=== PATIENT | female | born 1980 | race Caucasian/White ===

== ENCOUNTER 2022-04-06 11:59 | Emergency (ER) | payer OTHER ==
[~2022-04-06] VITALS: Ht 165.1 cm; Wt 105.0 kg
[2022-04-06 14:53] VITALS: BP 135/78
[2022-04-06] MEDS ORDERED: KETOROLAC TROMETH 60MG/2ML VIAL IM ONE (15:00)
[2022-04-06] MEDS ORDERED: HYDROcodone-ACET 10/325MG TAB PO ONE (15:00)
[2022-04-06 17:26] LABS: Urine Bacteria FEW /hpf (None Seen); Urine Blood Negative /uL (Negative); Urine Mucus FEW (None Seen); Urine Specific Gravity 1.021 (1.001-1.035); Urine WBC 3 /hpf (0 - 5)
[2022-04-06] MEDS ORDERED: HYDR-4902 PO (17:47)
[2022-04-06] MEDS ORDERED: IBUP800T26 PO (17:47)
== END 2022-04-06 17:48 | disposition home or self-care (01) ==
LOC: ER 11:59
DX: S16.1XXA Strain of muscle, fascia and tendon at neck level, initial encounter (principal); V89.2XXA Person injured in unspecified motor-vehicle accident, traffic, initial encounter; Y93.89 Activity, other specified; Y92.89 Other specified places as the place of occurrence of the external cause; Y99.8 Other external cause status
CPT/HCPCS: 72040; 81001; 96372; 99284; J1885